=== PATIENT | male | born 1980 | race Caucasian/White ===

== ENCOUNTER → 2017-10-09 09:49 | Outpatient (CLI) | payer OTHER, SELFPAY ==
[2017-10-09 12:44] LABS: Anion Gap 6 (5-15); BUN 12 mg/dL (7-18); Chloride 103 mmol/L (98-107); Cholesterol 185 mg/dL (200); Creatinine, Serum 0.75 mg/dL (0.70-1.30); EST Glomerular Filtration Rate 125 mL/min (>60); Est Glom Filt Rate - Afr Amer 151 mL/min (>60); Glucose 83 mg/dL (74-106); High Density Lipoprotein 46 mg/dL; Potassium 4.2 mmol/L (3.5-5.1); Sodium Level 138 mmol/L (136-145); Triglycerides 93 mg/dL; Very Low Density Lipoprotein 19 mg/dL (5-40)
== END ==
PROVIDERS: Family Provider Family Medicine; PCP Family Medicine; Visit Provider Family Medicine
DX: Z00.00 Encounter for general adult medical examination without abnormal findings (principal)
CPT/HCPCS: 36415; 80048; 80061

== ENCOUNTER → 2018-10-13 10:19 | Outpatient (CLI) | payer OTHER, SELFPAY ==
[2017-02-02 13:13] VITALS: BMI 25.9
[2018-10-13 13:22] LABS: Vitamin D,25 Hydroxy 36.2 ng/mL (29.95-100.01)
[2018-10-13 13:29] LABS: Anion Gap 10 (5-15); BUN 7 mg/dL (7-18); BUN/Creat Ratio 9.3 RATIO (10-20); Calcium,Total 8.8 mg/dL (8.5-10.1); Chloride 106 mmol/L (98-107); Cholesterol 173 mg/dL (200); Creatinine, Serum 0.75 mg/dL (0.70-1.30); EST Glomerular Filtration Rate 124 mL/min (>60); Est Glom Filt Rate - Afr Amer 150 mL/min (>60); Glucose 88 mg/dL (74-106); High Density Lipoprotein 50 mg/dL; Sodium Level 140 mmol/L (136-145); Thyroid Stim Hormone (TSH) 0.89 uIU/mL (0.358-3.74); Triglycerides 99 mg/dL; Very Low Density Lipoprotein 20 mg/dL (5-40)
== END ==
PROVIDERS: Family Provider Family Medicine; PCP Family Medicine; Referring Provider Family Medicine; Visit Provider Family Medicine
DX: Z00.00 Encounter for general adult medical examination without abnormal findings (principal); R68.89 Other general symptoms and signs
CPT/HCPCS: 36415; 80048; 80061; 82306; 84403; 84443

== ENCOUNTER → 2019-10-17 09:05 | Outpatient (CLI) | payer OTHER, SELFPAY ==
[2017-02-02 13:13] VITALS: BMI 25.9
[2019-10-17 11:26] LABS: Anion Gap 8 (5-15); BUN 14 mg/dL (7-18); BUN/Creat Ratio 14.3 RATIO (10-20); Chloride 102 mmol/L (98-107); Cholesterol 154 mg/dL (200); Creatinine, Serum 0.98 mg/dL (0.70-1.30); EST Glomerular Filtration Rate 91 mL/min (>60); Est Glom Filt Rate - Afr Amer 110 mL/min (>60); Glucose 74 mg/dL (74-106); High Density Lipoprotein 48 mg/dL; Potassium 4.1 mmol/L (3.5-5.1); Sodium Level 138 mmol/L (136-145); Triglycerides 29 mg/dL; Very Low Density Lipoprotein 6 mg/dL (5-40)
--- OUTSIDE RECORDS SUMMARY | 2020-03-04 05:37 | XMS RPT_ITS | CCD ---
:1980 External Reference #:[id number] Author Organization [facility] Care Team Providers Name Role Phone Michelle Freitas PA-C Unavailable Kenzie Cummings MD Unavailable Kenzie Cummings MD Unavailable Problems Category Problem Name Status Date Location Abdominal hernia Bilateral inguinal Completed 01-26-2017 - [facility] hernia (98270) Results Result Name Value Range Unit Interpretation Flag Date Location xr foot minimum 3 views right on 2018-09-21 XR FOOT MINIMUM 3 ORIGINAL Normal 09-21-2018 A [facility] VIEWS RIGHT XR XR FOOT MINIMUM 3 VIEWS RIGHT, [facility] ([place]) ([id number]) Clinical Statement: evaluation for pain/injury, , trauma, pa in Comparison: None Findings: There is no visualized acute fracture or dislocation. No radio-opaque foreign body or soft tissue gas is seen. IMPRESSION: No acute fracture seen. Interpreted By: Atilio Falcon MD Preliminary Report By: Atilio Falcon MD Electronically Signed By: Atilio Falcon MD Dictated Date: 09/21/2018 3:08:20 PM Prelim Date: 09/21/2018 3:08:20 PM Sign Date: 09/21/2018 3:08:37 PM office visit: post op right inguinal her efrem on 2017-02-16 Documentation of T Invalid 02-16-2017 [facility] Surgical current medications Interpretation Code 02-16-2017 [facility] (procedure) ([id number]) Documentation of Done Invalid 02-16-2017 [facility] Surgical current medications Interpretation Code 02-16-2017 [facility] (procedure) ([id number]) Fall risk No Invalid 02-16-2017 [facility] Amanda gical assessment Interpretation Code 7 [facility] ([id number]) Protein mass conc Done Invalid 02-16-2017 [facility] Surgical Interpretation Code 02-16-2017 [facility] ([id number]) Protein mass conc T Invalid 02-16-2017 - [facility] Surgical Interpretation Code 02-16-2017 [facility] ([id number]) Tobacco smoking Never smoker Invalid 02-16-2017 - [facility] Surgical status WAIS Interpretation Code 02-17-20 17 [facility] ([id number]) Tobacco use CPHS Never smoker Invalid 02-16-2017 - [facility] Surgical Interpretation Code 02-16-2017 [facility] ([id number]) office visit: right inguinal hernia on 2017-01-26 Documentation of Done Invalid 01-26-2017 [facility] Surgical current medications Interpretation Code 01-26-2017 [facility] (procedure) ([id number]) Documentation of T Invalid 01-26-2017 [facility] Surgical current medications Interpretation Code 01-26-2017 [facility] (procedure) ([id number]) Fall risk No Invalid 01-26-2017 [facility] Amanda gical assessment Interpretation Code 7 [facility] ([id number]) Protein mass conc Done 01-26-2017 - [facility] Surgical 01-26-2017 [facility] ([id number]) Protein mass conc T 01-26-2017 - [facility] Surgical 01-26-2017 [facility] ([id number]) Tobacco smoking Never smoker 01-26-2017 - [facility] Surgical status WAIS 01-26-2017 [facility] ([id number]) Tobacco use CPHS Never smoker Invalid 01-26-2017 - [facility] Surgical Interpretation Code 01-26-2017 [facility] ([id number]) Vital Signs Vital Sign Description Value / Unit Date Location The following section is limited to 5 en tries per type and includes entries from the following time range: 20170126 - 20170116 1. BMI (Body Mass Index) 26.12 kg/m2 01-26-2017 - 01-26-2017 [facility] ([id number]) BP Diastolic 88 mm[Hg] 01-26-2017 - 01-26-2017 [facility] ([id number]) BP Systolic 135 mm[Hg] 01-26-2017 - 01-26-2017 [facility] ([id number]) Height 185.42 cm 01-26-2017 - 01-26-2017 [facility] ([id number]) Respiratory Rate 16 /min 01-26-2017 - 01-26-2017 [facility] ([id number]) Weight 89.81 kg 01-26-2017 - 01-26-2017 [facility] ([id number]) Plan of Treatment Plan Description Date Location Appointment no information 02-16-2017 - 02-16-2017 [facility] ([id number]) Appointment Appointment 01-26-2017 - 01-26-2017 [facility] ([id number]) Summary Purpose Family History No Family History Records Found Advance Directives No Advanced Directives Records Found Additional Source Comments FOR RECORDS PERTAINING TO PATIENTS WHO ARE OR HAVE BEEN ENROLLED IN A CHEMICAL DEPENDENCY/SUBSTANCE ABUSE PROGRAM, SOME INFORMATION MAY BE OMITTED. This clinical summary was aggregated from multiple sources. Caution should be exercised in using it in the provision of clinical care. This summary normalizes information from multiple sources, and as a consequence, information in this document may materially changethe coding, format and clinical context of patient data. In addition, data may be omittedin some cases. CLINICAL DECISIONS SHOULD BE BASED ON THE PRIMARY CLINICAL RECORDS. [facility] provides no warranty or guarantee of the accuracy or completeness of information in this document. UNRECOGNIZED CONTENT PROVIDED BELOW FOR UNRECOGNIZED SECTION No Status Records Found UNRECOGNIZED CONTENT PROVIDED BELOW FOR UNRECOGNIZED SECTION INFORMATION SOURCE DATE CREATED AUTHOR AUTHOR'S ORGANIZATIO N 10/06/2018 [facility] ([place])
== END ==
PROVIDERS: PCP Family Medicine; Referring Provider Family Medicine; Visit Provider Family Medicine
DX: Z00.00 Encounter for general adult medical examination without abnormal findings (principal)
CPT/HCPCS: 36415; 80048; 80061